=== PATIENT | male | born 2005 | race Caucasian/White ===

== ENCOUNTER 2025-06-27 14:11 | Emergency (ER) | payer SELFPAY ==
[2025-06-27 15:32] LABS: Absolute Lymphocytes (CBC) 0.7 K/uL (0.7-4.9); Hematocrit 46.1 % (39.6-49.0); Hemoglobin 15.9 g/dL (13.6-17.9); MCH 30.0 pg (27.0-35.0); MCHC 34.5 g/dL (32.0-36.0); MCV 86.9 fL (80-100); MPV 6.7 fL (7.6-11.3); Nucleated RBC Absolute Count 0.0 (0-0); Nucleated Red Blood Cells % 0.1 % (0-0); RBC Red Blood Cell Count 5.31 M/uL (4.33-5.43); White Blood Count 9.40 thou/uL (4.3-10.9)
[2025-06-27 15:48] LABS: Influenza A Ag Negative; Influenza B Ag Negative; SARS-CoV-2 Antigen Rapid Res Negative (Negative)
[2025-06-27 15:50] LABS: ALT/SGPT 20.0 U/L (16-61); AST/SGOT 16.0 U/L (15-37); Albumin 4.1 g/dL (3.4-5.0); Albumin/Globulin Ratio 1.1 (1.1-1.8); Alkaline Phosphatase 69.0 U/L (45-117); Anion Gap 10.3 mEq/L (5.0-15.0); BUN Blood Urea Nitrogen 12.0 mg/dL (7-18); Bilirubin Indirect, Calculated 0.9 mg/dL (0.2-0.8); Globulin 3.7 g/dL (2.3-3.5); Glucose Level 107.0 mg/dL (74-106); Magnesium 2.1 mg/dL (1.6-2.4); Potassium 4.3 mEq/L (3.5-5.1)
[2025-06-27 16:21] LABS: Sqamous Epithelial <5 /HPF (None Seen); Urine Micro Reflex YN NO BILL MICROSCOPIC
[2025-06-27] MEDS ORDERED: KETOROLAC 30 MG/ML INJ ONE (17:27)
--- NOTE | 2025-06-27 17:37 | RAD REPORT ---
EXAMINATION: CT Abdomen Pelvis W Contrast CLINICAL INDICATION: Male, 20 years old. ABD PAIN TECHNIQUE: CT abdomen and pelvis was performed, after the administration of IV contrast, as per [facility] protocol. Axial, sagittal and coronal reconstructions were obtained. One or more of the following dose reduction techniques were used: Automated exposure control, adjustment of the mA and k V according to patient size, and iterative reconstruction. Unless otherwise specified, incidental findings do not require dedicated imaging follow-up. COMPARISON: No prior exam. FINDINGS: LOWER CHEST: The visualized lung bases are clear. LIVER: Normal in size and contour. No focal lesion. BILIARY SYSTEM: No suspicious abnormalities. SPLEEN: Normal size. No focal lesion. PANCREAS: No mass, ductal dilation, or kandice-pancreatic fluid. ADRENALS: Normal; no mass. KIDNEYS: Normal size and contour. No hydronephrosis. URINARY BLADDER: Decompressed limiting evaluation. GASTROINTESTINAL TRACT: No evidence of free air, significant intra-abdominal free fluid, bowel obstru ction or abscess. APPENDIX: Normal appendix. LYMPH NODES: No lymphadenopathy. MUSCULOSKELETAL: No acute or suspicious osseous abnormality. ADDITIONAL FINDINGS: 2 ovoid structures near the inguinal rings, fairly symmetric, measuring 3.8 x 2. 3 and 3.4 x 2.4 cm on the left and right, could relate to undescended testes.. IMPRESSION: No acute or concerning abnormalities seen in the abdomen or pelvis. Bilateral ovoid soft tissue structures near the inguinal rings, probably related to undescended teste s.
[2025-06-27] MEDS ORDERED: NA CHLORIDE 0.9% 1,000 ML ONE (17:39)
--- NOTE | 2025-06-27 18:31 | EDPHYS ---
Physician Documentation [facility] Name: Cuate Howard Age: 20 yrs Sex: Male : 2005 Arrival Date: 06/27/2025 Time: 14:11 Bed 17 Private MD: ED Physician Zaid Simmons HPI: 06/27 14:28 This 20 yrs old Male presents to ER via Ambulatory with complaints of Near Syncope. 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 Denies vomiting, diarrhea, urinary symptoms. . Historical: - Allergies: 14:18 No Known Allergies; dd2 - PMHx: 14:18 Anxiety; Bipolar disorder; PTSD; Depressive disorder; dd2 - PSHx: 14:18 None; dd2 - Immunization history:: Adult Immunizations up to date. - Infectious Disease History:: Denies. - Social history:: Smoking status: Reported history of juuling and/or vaping. ROS: 14:27 Constitutional: As per HPI kb Exam: 14:27 Constitutional: This is a well developed, well nourished patient who is awake, alert, kb and in no acute distress. Head/Face: Normocephalic, atraumatic. ENT: Moist Mucous membranes Cardiovascular: Regular rate Respiratory: Respirations even and unlabored. No increased work of breathing. Talking in full sentences Skin: Warm, dry with normal turgor. Normal color. MS/ Extremity: Pulses equal, no cyanosis. Neurovascular intact. Full, normal range of motion. Neuro: Awake and alert, GCS 15, oriented to person, place, time, and situation. 14:27 Abdomen/GI: Inspection: abdomen appears normal, Bowel sounds: normal, Palpation: soft, in all quadrants, mild abdominal tenderness, in the right lower quadrant, 16:41 ECG was reviewed by the Attending Physician. kb Vital Signs: 14:18 BP 117 / 76; Pulse 129; Resp 16; Temp 99.2(O); Weight 72.57 kg; dd2 15:15 BP 113 / 67; Pulse 111; Resp 18; Pulse Ox 9% ; rg5 16:37 BP 116 / 70; Pulse 115; Resp 18; Pulse Ox 100% ; rg5 16:54 BP 114 / 62 LA Supine; Pulse 106; Resp 18; Pulse Ox 100% ; rg5 16:56 BP 107 / 66 LA Sitting; Pulse 105; Pulse Ox 100% ; rg5 17:00 BP 93 / 57 LA Standing; Pulse 109; Pulse Ox 98% ; rg5 18:27 BP 119 / 73; Pulse 78; Resp 18; Pulse Ox 98% ; rg5 MDM: 14:15 Medical Screening Exam initiated kb 14:29 Data reviewed: vital signs, nurses notes. kb 18:15 Differential Diagnosis: cardiac arrhythmia, idiopathic syncope, vasovagal episode, kb dehydration. 18:31 Counseling: I had a detailed discussion with the patient and/or guardian regarding the kb historical points, exam findings, and any diagnostic results supporting the discharge/admit diagnosis, lab results, radiology results, the need for outpatient follow up, a family practitioner, to return to the emergency department if symptoms worsen or persist or if there are any questions or concerns that arise at home. 06/27 14:21 Order name: Basic Metabolic Panel; Complete Time: 15:56 kb 06/27 14:21 Order name: CBC with Diff; Complete Time: 15:33 kb 06/27 14:21 Order name: Hepatic Function; Complete Time: 15:56 kb 06/27 14:21 Order name: Magnesium; Complete Time: 15:56 kb 06/27 14:21 Order name: COVID-19 Ag + Flu A+B Ag; Complete Time: 15:56 kb 06/27 14:21 Order name: UA W/ Microscopic; Complete Time: 16:22 kb 06/27 15:56 Order name: CT Abd/Pelvis - IV Contrast Only; Complete Time: 17:38 kb 06/27 14:21 Order name: Cardiac monitoring; Complete Time: 16:37 kb 06/27 14:21 Order name: EKG - Nurse/Tech; Complete Time: 16:37 kb 06/27 14:21 Order name: IV Saline Lock; Complete Time: 16:37 kb 06/27 14:21 Order name: Labs collected and sent; Complete Time: 16:37 kb 06/27 14:21 Order name: NPO; Complete Time: 16:37 kb 06/27 14:21 Order name: O2 Per Protocol; Complete Time: 16:37 kb 06/27 14:21 Order name: O2 Sat Monitoring; Complete Time: 16:37 kb 06/27 14:21 Order name: Orthostatics; Complete Time: 17:00 kb EC:41 Rate is 102 beats/min. Rhythm is regular. QRS Colver is Normal. MD interval is normal at kb 142 msec. QRS interval is normal at 74 msec. QT interval is normal at 340 msec. Administered Medications: 17:28 Drug: Ketorolac IVP 15 mg IVP once Route: IVP; Site: right antecubital; rg5 18:26 Follow up: Response: No adverse reaction; Pain is decreased rg5 17:57 Drug: NS 0.9% IV 1000 ml IV at 1000 ml once; to be given as a bolus over 60 minutes rg5 Route: IV; Rate: 1000 ml; Site: right antecubital; 19:06 Follow up: IV Status: Completed infusion; IV Intake: 1000ml rg5 Disposition: 15:42 I was immediately available on-site in the Emergency Department for consultation in the ms3 care of the patient. Disposition Summary: 06/27/25 18:30 Discharge Ordered Notes: Location: Home kb Condition: Stable kb Diagnosis - Syncope Near kb - Viral infection, unspecified kb Followup: kb - With: Emergency Department - When: As needed - Reason: Worsening of condition Followup: kb - With: Private Physician - When: 2 - 3 days - Reason: Recheck today's complaints, Continuance of care, Re-evaluation by your physician Discharge Instructions: - Discharge Summary Sheet kb - Near-Syncope, [id number] kb - Viral Illness, Adult kb Forms: - Medication Reconciliation Form kb - Antibiotic Education kb - Prescription Opioid Use kb - Patient Portal Instructions kb - Leadership Thank You Letter kb - Work release form rg5 Signatures: Dispatcher [employer] EDMS Vanda Alvarado, DENG-C GARMENT TAG STRINGER-Zaid Devlin, DO ms3 Jackson Gomez RN RN rg5 RADHA VAUGHN RN RN dd2 Corrections: (The following items were deleted from the chart) 14:21 14:21 BASIC METABOLIC PANEL+C.LAB.BRZ ordered. EDMS EDMS 14:21 14:21 CBC+H.LAB.BRZ ordered. EDMS EDMS 14:21 14:21 HEPATIC FUNCTION+C.LAB.BRZ ordered. EDMS EDMS 14:21 14:21 MAGNESIUM+C.LAB.BRZ ordered. EDMS EDMS
--- NOTE | 2025-06-27 18:31 | ER ---
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 Coronavirus screen: At this time, the client does not indicate any symptoms associated with coronavirus-19. Ebola Screen: No symptoms or risks identified at this time. Risk Assessment: Do you want to hurt yourself or someone else? Patient reports no desire to harm self or others. Onset of symptoms. 14:16 Method Of Arrival: Ambulatory dd2 14:16 Acuity: AYDEE 3 dd2 14:18 Initial Sepsis Screen: Does the patient meet any 2 criteria? No. Patient's initial dd2 sepsis screen is negative. Does the patient have a suspected source of infection? No. Patient's initial sepsis screen is negative. Triage Assessment: 14:18 General: Appears in no apparent distress. uncomfortable, Behavior is calm, cooperative, dd2 appropriate for age. Pain: Complains of pain in right lower quadrant. Neuro: Reports NEAR SYNCOPE. 14:18 GI: Abdomen is tender to palpation in right lower quadrant Reports nausea. dd2 Historical: - Allergies: 14:18 No Known Allergies; dd2 - PMHx: 14:18 Anxiety; Bipolar disorder; PTSD; Depressive disorder; dd2 - PSHx: 14:18 None; dd2 - Immunization history:: Adult Immunizations up to date. - Infectious Disease History:: Denies. - Social history:: Smoking status: Reported history of juuling and/or vaping. Screenin:00 [facility] ED Fall Risk Assessment (Adult) History of falling in the last 3 months, rg5 including since admission No falls in past 3 months (0 pts) Confusion or Disorientation No (0 pts) Intoxicated or Sedated No (0 pts) Impaired Gait No (0 pts) Mobility Assist Device Used No (0 pt) Altered Elimination Yes (1 pt) Score/Fall Risk Level 0 - 2 = Low Risk Oriented to surroundings, Maintained a safe environment. Abuse screen: Denies threats or abuse. Nutritional screening: No deficits noted. Tuberculosis screening: No symptoms or risk factors identified. Assessment: 14:30 General: Appears in no apparent distress. comfortable, Behavior is calm, cooperative, rg5 appropriate for age. Neuro: Level of Consciousness is awake, alert, obeys commands, Oriented to person, place, time, situation, Reports dizziness, a syncopal episode. Cardiovascular: Denies chest pain, Patient's skin is warm and dry. Respiratory: Airway is patent Trachea midline Respiratory effort is even, unlabored, Respiratory pattern is regular, symmetrical. GI: Abdomen is round non-distended. : No signs and/or symptoms were reported regarding the genitourinary system. EENT: No signs and/or symptoms were reported regarding the EENT system. Derm: Skin is intact, Skin is dry, Skin is normal. Musculoskeletal: Circulation, motion, and sensation intact. Range of motion: intact in all extremities. 15:30 Reassessment: Patient and/or family updated on plan of care and expected duration. Pain rg5 level reassessed. Patient is alert, oriented x 3, equal unlabored respirations, skin warm/dry/pink. 16:30 Reassessment: Patient and/or family updated on plan of care and expected duration. Pain rg5 level reassessed. Patient is alert, oriented x 3, equal unlabored respirations, skin warm/dry/pink. Vital Signs: 14:18 BP 117 / 76; Pulse 129; Resp 16; Temp 99.2(O); Weight 72.57 kg; dd2 15:15 BP 113 / 67; Pulse 111; Resp 18; Pulse Ox 9% ; rg5 16:37 BP 116 / 70; Pulse 115; Resp 18; Pulse Ox 100% ; rg5 16:54 BP 114 / 62 LA Supine; Pulse 106; Resp 18; Pulse Ox 100% ; rg5 16:56 BP 107 / 66 LA Sitting; Pulse 105; Pulse Ox 100% ; rg5 17:00 BP 93 / 57 LA Standing; Pulse 109; Pulse Ox 98% ; rg5 18:27 BP 119 / 73; Pulse 78; Resp 18; Pulse Ox 98% ; rg5 ED Course: 14:14 Patient arrived in ED. im 14:15 Vanda Alvarado FNP-C is PHCP. kb 14:15 Zaid Simmons DO is Attending Physician. kb 14:18 Triage completed. dd2 14:18 Arm band placed on left wrist. dd2 14:32 Jackson Gomez, RN is Primary Nurse. rg5 15:00 Patient has correct armband on for positive identification. Bed in low position. Call rg5 light in reach. Side rails up X 1. 15:00 No provider procedures requiring assistance completed. Inserted saline lock: 20 gauge rg5 in right antecubital area, using aseptic technique. Blood collected. Flushed with 10 mL NS. Patient maintains SpO2 saturation greater than 95% on room air. 16:47 CT Abd/Pelvis - IV Contrast Only In Process Unspecified. EDMS Administered Medications: 17:28 Drug: Ketorolac IVP 15 mg IVP once Route: IVP; Site: right antecubital; rg5 18:26 Follow up: Response: No adverse reaction; Pain is decreased rg5 17:57 Drug: NS 0.9% IV 1000 ml IV at 1000 ml once; to be given as a bolus over 60 minutes rg5 Route: IV; Rate: 1000 ml; Site: right antecubital; 19:06 Follow up: IV Status: Completed infusion; IV Intake: 1000ml rg5 Medication: 16:42 VIS not applicable for this client. rg5 Intake: 19:06 IV: 1000ml; Total: 1000ml. rg5 Outcome: 18:30 Discharge ordered by . kb 19:06 Discharged to home ambulatory, rg5 19:06 Condition: stable 19:06 Discharge instructions given to patient, Instructed on discharge instructions, 19:07 Patient left the ED. rg5 Signatures: Dispatcher [employer] EDMS Vanda Alvarado, IT SECURITY CONSULTANT-C IT SECURITY CONSULTANT-CkBess Coyle Jackson Gomez, RN RN rg5 RADHA VAUGHN RN RN dd2 Corrections: (The following items were deleted from the chart) 16:15 14:16 Acuity: AYDEE 4 dd2 dd2
[2025-06-27 21:41] VITALS: TEMP 99.2
[2025-06-27 21:46] VITALS: O2SAT 98
[2025-06-27 21:48] VITALS: BP 119/73
== END 2025-06-27 19:07 | disposition home or self-care (01) ==
LOC: ER 14:11
DX: R55 Syncope and collapse (principal); B34.9 Viral infection, unspecified; Z11.52 Encounter for screening for COVID-19
CPT/HCPCS: 36415; 74177; 80048; 80076; 81001; 83735; 85025; 87428; 93005; 96361; 96374; 99284; J1885; J7030; Q9967